=== PATIENT | female | born 2000 | race Caucasian/White ===

== ENCOUNTER 2024-01-02 08:24 | Day surgery (SDC) | payer BC ==
[2024-01-02] VITALS (10 sets, daily range): BP systolic 114–166; BP diastolic 70–93; PULSE 52–63; TEMP 97.3–98.1
[~2024-01-02] VITALS: Ht 152.4 cm; Wt 70.9 kg
[~2024-01-02 08:24] MED LIST: HYDROmorphone 1 MG/1 ML SYRINGE [PACU/SDC ONLY] IV PRN; Indocyanine Green 12.5 MG in Water For Injection,Sterile 2.5 ML IV ONE; Ketorolac 30 MG/ML VIAL ONE; Lidocaine PF 2% (20 MG/ML) 5 ML VIAL ONE; Meclizine 25 MG TAB PO SCH; Meperidine 50 MG/ML 1 ML VIAL IV PRN; NS 10 ML IV ONE; Ondansetron 4 MG/2 ML VIAL IV PRN; Ondansetron 4 MG/2 ML VIAL ONE; Rocuronium 50 MG/5 ML Multi-Dose VIAL ONE; dexAMETHasone 10 MG/ML VIAL ONE; droPERidol 2.5 MG/ML 2 ML VIAL IV PRN; fentaNYL 50 MCG/ML 1 ML SYRINGE/VIAL [PACU/SDC ONLY] IV PRN; fentaNYL 50 MCG/ML 5 ML VIAL ONE; hydrALAZINE 20 MG/ML 1 ML VIAL IV PRN
[2024-01-02] MEDS ORDERED: Indocyanine Green 12.5 MG in Water For Injection,Sterile 2.5 ML IV SCH (09:45)
[2024-01-02] MEDS ORDERED: LR 1,000 ML IV SCH (10:00)
[2024-01-02] MEDS ORDERED: NORCO 325 MG-51 TAB PO (11:39)
[2024-01-02] MEDS ORDERED: Ondansetron 4 MG/2 ML VIAL IV PRN (11:45)
--- NOTE | 2024-01-02 16:30 | NUR ---
1350 RETURNS TO ROOM 8 PER CART WITH HOB ELEVATED 30 DEGREES. DROWSY, RESP UNLABORRED. ABD SOFT. BANDAID X 4 SITES CLEAN DRY AND INTACT. REPORTS MODERATE ABD PAIN AND DISCOMFORT. CALL LIGHT AT SIDE. MOTHER AND SIGNIFICANT OTHER IN ROOM 1405 REPOSITIONS ON CART WITH ASSIST. REST ENCOURAGED. LIGHTS DIMMED 1420 PATIENT DOZING 1450 AROUSES. REPORTS CONTINUED SLIGHT NAUSEA. NO VOMITTING. TOLERATES PO WATER 1520 AWAKE. HOB ELEVATED 60 DEGREES. INCREASED NAUSEA WITH MOVEMENT. VOMITS SMALL AMOUNT OF GREEN/CLEAR EMESIS ABD SOFT. BANDAIDS UNCHANGED 1545 DENIES NAUSEA WHILE LYING STILL 1600 AMBULATES TO BATHROOM WITH STANDBY ASSIST. VOIDS. MOVES WELL. SLIGHT NAUSEA 1610 DISCHARGE INSTRUCTIONS REVIEWED. PATIENT, MOTHER AND SIGNIFICANT OTHER VERBALIZE UNDERSTANDING. COPY PROVIDED IN DISCHARGE FOLDER 1620 SITS ON EDGE OF CART. DRESSES. SLIGHT INCREASE IN NAUSEA. PATIENT EXPRESSES DESIRE TO GO HOME
== END 2024-01-02 16:30 | disposition home or self-care (01) ==
LOC: SDCO 08:24
DX: K82.8 Other specified diseases of gallbladder (principal); K21.9 Gastro-esophageal reflux disease without esophagitis; Z79.899 Other long term (current) drug therapy
CPT/HCPCS: J0690; J1100; J1171; J1790; J1885; J2405; J2704; J3010; J7120